=== PATIENT | male | born 1975 | race Caucasian/White ===

== ENCOUNTER 2021-07-27 06:45 | Emergency (ER) | payer OTHER, SELFPAY ==
--- NOTE | ~2021-07-27 | CT_ITS ---
EXAMINATION: CT abdomen pelvis w con DATE: 07/27/2021 09:05 INDICATION: Left-sided abdominal pain. History of diverticulitis. Intermittent nausea. TECHNIQUE: Computed tomography (CT) of the abdomen and pelvis was performed with 100 cc Omnipaque 350 intravenous contrast. The dose-length product was 1481.20 mGy-cm. Automated exposure control and ite rative reconstruction technique were employed. COMPARISON: CT dated 04/28/2013 .. FINDINGS: Bibasilar dependent atelectasis. Heart size normal. No significant pleural or pericardial e ffusion. The liver, spleen, pancreas, adrenal glands and kidneys are unremarkable. Ureters are normal in course and caliber. There is mild acute proximal sigmoid diverticulitis. No evidence for perforat ion. No free air or free fluid. No abscess. Gallbladder is present. There is a moderate sized hiatal hernia. No lymphadenopathy. No significant vascular abnormality. IMPRESSION: 1. Acute uncomplicated proximal sigmoid diverticulitis. Reviewed, dictated and finalized at location A.
[2021-07-27 06:49] VITALS: BP 151/87; PULSE 60; RESP 16; TEMP 36.6; O2SAT 100
[2021-07-27 07:29] LABS: Basophils Percent Auto 0.4 % (0.2-1.2); Eosinophils Absolute Auto 0.1 K/mm3 (0-0.3); Eosinophils Percent Auto 0.8 % (0-4.4); Hematocrit 38.6 % (42.0-52.0); Hemoglobin 12.2 g/dL (14.0-18.0); Immature Granulocyte Absolute 0.04 K/mm3 (0.00-0.031); Immature Granulocyte Percent A 0.5 % (0-0.5); Lymphocytes Absolute Auto 1.37 K/mm3 (0.9-3.2); Lymphocytes Percent Auto 18.3 % (18.3-44.2); Mean Corpuscular HGB Conc 31.6 g/dl (32-36); Mean Corpuscular Hemoglobin 19.7 pg (26-34); Mean Corpuscular Volume 62.3 fl (80-100); Mean Platelet Volume 10.3 fl (7.4-10.4); Monocytes Absolute Auto 0.6 K/mm3 (0.1-0.6); Monocytes Percent Auto 7.9 % (2.6-8.5); Neutrophils Absolute Auto 5.4 K/mm3 (1.3-6.7); Neutrophils Percent Auto 72.1 % (45.5-73.1); Platelet Count Result 280 k/mm3 (150-375); Red Cell Distribution Width 16.4 % (11.5-14.5); White Blood Count 7.5 K/mm3 (4.5-10.0)
[2021-07-27 07:31] LABS: Add Urine Microscopic? NO; Appearance Urine Clear (Clear); Bilirubin Urine Negative (Negative); Blood Urine Negative (Negative); Color Urine Straw (Yellow); Glucose Urine UA Negative (Negative); Ketones Urine Negative (Negative); Leukocyte Esterase Ur Negative LEU/UL (Negative); Nitrate Urine Negative (Negative); Protein Urine Negative (Negative); Specific Grav Ur 1.008 (1.001-1.035); Urobilinogen Urine Negative mg/dL (<2.0)
[2021-07-27 07:40] LABS: Alanine Aminotransferase 33 U/L (4-50); Albumin Level 4.7 g/dL (3.5-5.1); Alkaline Phosphatase 59 U/L (38-126); Anion Gap 10 mmol/L (8-16); Aspartate Amino Transferase 30 U/L (17-59); Bilirubin,Total 0.9 mg/dL (0.2-1.3); Blood Urea Nitrogen 15 mg/dL (9-20); Calcium 9.2 mg/dL (8.4-10.2); Carbon Dioxide 27 mmol/L (22-30); Chloride 104 mmol/L (98-107); Estimated CRCL calculation 121 ml/min; Estimated Glomerular Filt Rate > 60; Glucose 109 mg/dL (65-110); Lipase 35 U/L (23-300); Potassium 4.3 mmol/L (3.4-5.0); Sodium 141 mmol/L (137-145)
--- NOTE | 2021-07-27 08:52 | ED.GENADULT ---
HPI - General Adult General Chief complaint: Abdominal Pain Stated complaint: lower left flank pain Time Seen by Provider: 07/27/21 07:09 Source: patient History of Present Illness HPI narrative: Patient is a 46 y/o male complaining of left lower abdominal pain starting 2 weeks ago. He describes his pain as a pressure and rates it as 4/10. His pain radiates to back sometimes. He has no vomiting, diarrhea or dysuria. Related Data Home Medications Medication Instructions Recorded Confirmed acidophilus 100 million cap PO 03/04/20 04/17/21 cell-pectin, citrus 10 mg capsule Allergies Allergy/AdvReac Type Severity Reaction Status Date / Time No Known Allergies Allergy Verified 07/27/21 06:55 Review of Systems Constitutional: Constitutional: Denies chills, Denies fever(s), Denies headache(s) and Denies weakness Eyes: Eyes: Denies blurry vision ENT: Denies headache(s) and Denies neck pain Cardiovascular: Cardiovascular: Denies chest pain and Denies dyspnea Respiratory: Respiratory: Denies cough and Denies dyspnea Gastrointestinal: Gastrointestinal: Reports abdominal pain, Denies diarrhea, Denies nausea and Denies vomiting Genitourinary: Genitourinary: Denies hematuria and Denies dysuria Musculoskeletal: Musculoskeletal: Reports back pain and Denies neck pain Neurologic: Denies headache(s) and Denies weakness [facility] Past Medical History Medical History Beta thalassemia minor Broken leg left leg - around 2005 Diverticulitis 04/2003 Essential (primary) hypertension GERD without esophagitis Surgical History Surgical History History of open reduction and internal fixation (ORIF) procedure (~2005) 2005 - Left tibia and fibula [place] teeth extracted Family History Family History Mother Lung cancer Hypertension Social History Social History Smoking status: Never smoker Second hand tobacco smoke exposure: No Alcohol intake: current Alcohol use details: consumes more than 5 beers occasionally Substance use: never Substance use type: does not use Gender identity (if verbalized by the patient): Male Exam Const: General: no acute distress and well developed Orientation/consciousness: oriented to person, oriented to place, oriented to time and patient oriented x3 HENMT: Head: normocephalic Ears: external ears normal General nose exam: Normal external nose present Eyes: General: appearance normal, both eyes and all related structures Conjunctivae: conjunctivae normal Neck: Neck: normal visual inspection and full ROM Chest: Chest palpation & inspection: normal inspection of the chest and no tenderness Resp: Effort & Inspection: normal respiratory effort Auscultation: clear to auscultation bilaterally Cardio: Rate: regular rate Rhythm: regular rhythm GI: GI Palp: Yes abdominal tenderness (left lower quadrant) and Yes Soft to palpation Skin: General skin exam: normal color and turgor normal Neuro: General: oriented to person, oriented to place, oriented to time and patient oriented x3 Cognition (Neuro): normal cognition Extrem: General: normal to inspection, full ROM and no pedal edema Psych: Appearance: grossly normal Mental Status: mental status grossly normal Affect: normal affect Course Vital Signs Vital signs: Vital Signs Temperature 36.6 C 07/27/21 06:49 Pulse Rate 60 07/27/21 06:49 Respiratory Rate 16 07/27/21 06:49 Blood Pressure 151/87 H 07/27/21 06:49 Pulse Oximetry 100 07/27/21 06:49 Temperature 36.6 C 07/27/21 06:49 Pulse Rate 60 07/27/21 06:49 Respiratory Rate 16 07/27/21 06:49 Blood Pressure 151/87 H 07/27/21 06:49 Pulse Oximetry 100 07/27/21 06:49 Medical Decision Making Vital Sign
[2021-07-27] MEDS: KETOROLAC 30 MG/ML VIAL (*BKC) IV PUSH (09:10)
== END 2021-07-27 09:51 | disposition home or self-care (01) ==
PROVIDERS: Emergency Medicine; Emergency Provider Emergency Medicine; PCP Family Medicine
DX: K57.92 Diverticulitis of intestine, part unspecified, without perforation or abscess without bleeding (principal); K21.9 Gastro-esophageal reflux disease without esophagitis
CPT/HCPCS: 36415; 74177; 80053; 81003; 83690; 85025; 96374; 99284; J1885; Q9967

== ENCOUNTER 2022-05-13 18:25 | Emergency (ER) | payer OTHER, SELFPAY ==
[2022-05-13 18:33] VITALS: BP 144/79; PULSE 126; RESP 16; TEMP 38.5; O2SAT 98
--- NOTE | 2022-05-13 18:50 | ED.EAR ---
HPI - Ear Problem General Chief complaint: Ear Stated complaint: ear infection Time Seen by Provider: 05/13/22 18:41 Source: patient Mode of arrival: ambulatory Limitations: no limitations History of Present Illness HPI Narrative: Patient presents today complaining of a 2-day history of body aches, bilateral ear pain and pressure, head pressure. Denies any additional symptoms to include sore throat, cough, nausea, vomiting, diarrhea, fever. He has been taking Advil Cold and Sinus with relief. He took a home COVID-19 test less than 24 hours after symptoms began. It was negative. Related Data Home Medications Medication Instructions Recorded Confirmed acidophilus 100 million cap PO 03/04/20 04/17/21 cell-pectin, citrus 10 mg capsule (Acidophilus Probiotic) Allergies Allergy/AdvReac Type Severity Reaction Status Date / Time No Known Allergies Allergy Verified 10/30/21 16:06 Review of Systems Review of Systems: CONSTITUTIONAL: Denies fever, chills, or sweats.+ Body aches EYES: Denies visual changes, redness, or discharge. ENT: Denies rhinorrhea, congestion, sore throat. + Bilateral ear pressure, head pressure CARDIOVASCULAR: Denies chest pain, palpitations, or edema. RESPIRATORY: Denies cough or dyspnea. GASTROINTESTINAL: Denies abdominal pain, nausea, vomiting, or diarrhea. GENITOURINARY: Denies dysuria or hematuria. SKIN: Denies rash, itching, or wounds. MUSCULOSKELETAL: Denies back pain, joint pain, or myalgia. NEUROLOGIC: Denies headache, numbness, tingling, or weakness. PSYCH: Denies depression or anxiety. [facility] Past Medical History Medical History Beta thalassemia minor Broken leg left leg - around 2006 Diverticulitis 04/2003, 07/2020 Essential (primary) hypertension GERD without esophagitis Surgical History Surgical History History of open reduction and internal fixation (ORIF) procedure (~2005) 2005 - Left tibia and fibula [place] teeth extracted Family History Family History Mother Lung cancer Hypertension Social History Social History Smoking status: Never smoker Second hand tobacco smoke exposure: No Alcohol intake: current Alcohol use details: consumes more than 5 beers occasionally Substance use: never Substance use type: does not use Gender identity (if verbalized by the patient): Male Comments At time of signature, I have reviewed and agree with nursing past medical, surgical, social and family history unless otherwise noted. Please see nursing chart for further information. There is no relevant family history pertinent to the presenting complaint Exam Narrative: GENERAL: Well-appearing, well-nourished, and in no acute distress. HEAD: Normocephalic, atraumatic. EYES: EOMI. No redness or drainage. Conjunctivae normal. ENT: Mucous membranes pink and moist. Nares clear. No rhinorrhea. TMs normal bilaterally. Throat normal with mild amount of white postnasal drainage. Uvula midline. NECK: Normal AROM. Supple. No lymphadenopathy. CHEST: No respiratory distress. Clear to auscultation. HEART: Regular rate and rhythm. No murmur appreciated. Normal peripheral pulses. EXTREMITIES: Normal range of motion. No edema. SKIN: Warm, dry, no rash. Capillary refill normal. Normal skin turgor. NEURO: No focal deficits. Alert and oriented x3. Gait steady. PSYCH: Normal affect. No signs of depression or anxiety. Course Course Level of Care: Express Care Visit Vital Signs Vital signs: Vital Signs Temperature 101.3 F H 05/13/22 18:33 Pulse Rate 126 H 05/13/22 18:33 Respiratory Rate 16 05/13/22 18:33 Blood Pressure 144/79 H 05/13/22 18:33 Pulse Oximetry 98 05/13/22 18:33 Oxygen Delivery Room Air 05/13/22 18
== END 2022-05-13 19:21 | disposition home or self-care (01) ==
PROVIDERS: Emergency Provider Nurse Practitioner; PCP Family Medicine
DX: B34.9 Viral infection, unspecified (principal); Z20.822 Contact with and (suspected) exposure to COVID-19; I10 Essential (primary) hypertension; K21.9 Gastro-esophageal reflux disease without esophagitis; D56.3 Thalassemia minor
CPT/HCPCS: 87426; 99213; C9803; G0463

== ENCOUNTER 2022-12-03 16:41 | Outpatient (CLI) | payer OTHER, SELFPAY ==
--- NOTE | 2022-12-26 19:47 | WPDHOMESLEEP ---
Sleep Study - Home Unattended Date of Study: 12/03/22 Ordering Provider: Juan Jose Hall MD Interpreting Provider: Monica Solorio, DO Home Sleep Study Type: Watch PAT Height: 1.88 m Weight: 131.542 kg Body Mass Index: 37.2 Neck Circumference (inches): 17 [place]: 6 Reason for Sleep Study Snoring, witnessed apneas Sleep History The patient is a 47-year-old male with hypertension, GERD, and beta thalassemia minor that had a sleep study ordered by his primary care physician for evaluation of sleep apnea. The patient denies awakening from sleep short of breath. He occasionally awakens at night with heartburn, belching or cough. He constantly snores loudly enough that others complain. He rarely has trouble sleeping when he has a cold. He denies waking up gasping for air throughout the night. He frequently has breathing problems at night observed by himself or others. He occasionally sweats excessively at night. He rarely has heart palpitations or irregular heartbeats during the night. He rarely falls asleep during the day but never while driving. He denies sleep paralysis and cataplexy. He denies having trouble at school or work due to sleepiness. He occasionally experiences vivid dreamlike scenes upon awakening falling asleep. He denies feeling afraid of going to sleep. He occasionally has nightmares. He occasionally remembers his dreams. He frequently has thoughts racing through his mind. He rarely feels sad or depressed. He frequently has anxiety. He rarely has muscular tension. He occasionally notices parts of his body jerk. He denies kicking during the night. He denies having crawling and aching feelings in his legs and denies having leg pain during the night. He denies grinding his teeth during sleep but rarely awakens with morning jaw pain. He is occasionally bothered by pain during the day but rarely awakened by pain during the night. He occasionally wakes up feeling stiff in the morning. He occasionally wakes up with sore or achy muscles. He occasionally wakes up with pain in the neck, spine or other joints. He goes to bed at 9:00 p.m. on both weekdays and weekends. He is able to fall asleep within minutes. He wakes up 1-2 times throughout the night to urinate. He is able fall back asleep within 5-10 minutes. He wakes up at 5:00 a.m. on both weekdays and weekends. He typically gets 8 hours of sleep per night. He will stay in bed for 10 minutes after waking up in the morning. He currently lives with his and 3 children. He will consume caffeinated beverages within 2 hours of bedtime. He does not engage in physical exercise before bedtime. He denies reading and watching television before falling asleep. He does not take any naps in the afternoon or the evening. He drinks 4 cups of caffeinated beverage per day. He denies tobacco, alcohol and recreational drug use. [facility] Past Medical History Medical History Beta thalassemia minor Broken leg left leg - around 2005 Diverticulitis 04/2003, 07/2020 Essential (primary) hypertension GERD without esophagitis Surgical History Surgical History History of open reduction and internal fixation (ORIF) procedure (~2005) 2005 - Left tibia and fibula [place] teeth extracted Family History Family History Mother Lung cancer Hypertension Social History Social History Smoking status: Never smoker Second hand tobacco smoke exposure: No Alcohol intake: current Alcohol use details: consumes more than 5 beers occasionally Substance use: never Substance use type: does not use Lack of Transportation: No Lack of Food: Never True Current Housing: I Have Housing Concerned About Future Housing: No Difficulty P
[2022-12-26 19:59] VITALS: BMI 37.2
== END 2022-12-07 10:25 | disposition home or self-care (01) ==
LOC: ANHCSM 16:41
PROVIDERS: PCP Family Medicine; Visit Provider Family Medicine
DX: G47.33 Obstructive sleep apnea (adult) (pediatric) (principal); G47.10 Hypersomnia, unspecified
CPT/HCPCS: 95800

== ENCOUNTER 2023-10-20 18:37 | Emergency (ER) | payer OTHER, SELFPAY ==
--- NOTE | 2023-10-20 18:48 | ED.SKABFB ---
HPI - Skin/Abscess/Foreign Bdy General Chief complaint: Skin/Abscess/Foreign Body Stated complaint: Rash Time Seen by Provider: 10/20/23 19:05 Source: patient and RN notes reviewed Mode of arrival: ambulatory Limitations: no limitations History of Present Illness HPI narrative: 48-year-old male presents concern for painful itchy rash on his right chest and back. Reports that started a few days ago. Reports pain is a 4/10. He denies drainage from the area. Denies general malaise or fever. MD complaint: rash Related Data Home Medications Medication Instructions Recorded Confirmed acidophilus 100 million 1 cap PO DAILY 11/05/22 11/05/22 cell-pectin, citrus 10 mg capsule (Acidophilus Probiotic) Allergies Allergy/AdvReac Type Severity Reaction Status Date / Time No Known Allergies Allergy Verified 11/05/22 15:59 Review of Systems Review of Systems: CONSTITUTIONAL: Denies malaise, chills, sweats, or fever. EYES: Denies redness, or discharge. ENT: Denies rhinorrhea, congestion, swollen lips, swollen tongue CARDIOVASCULAR: Denies chest pain, palpitations, or edema. RESPIRATORY: Denies cough or dyspnea. GASTROINTESTINAL: Denies abdominal pain, nausea, vomiting SKIN: Reports painful itchy rash on the right chest and back MUSCULOSKELETAL: Denies joint pain or myalgia. NEUROLOGIC: Denies headache. All systems reviewed & are unremarkable except as noted in HPI and below PMFSH Past Medical History Medical History Beta thalassemia minor Broken leg left leg - around 2005 Diverticulitis 04/2003, 07/2020 Essential (primary) hypertension GERD without esophagitis Surgical History Surgical History History of open reduction and internal fixation (ORIF) procedure (~2005) 2005 - Left tibia and fibula [place] teeth extracted Family History Family History Mother Lung cancer Hypertension Social History Social History Smoking status: Never smoker Second hand tobacco smoke exposure: No Alcohol intake: current Alcohol use details: consumes more than 5 beers occasionally Substance use: never Substance use type: does not use Lack of Transportation: No Lack of Food: Never True Current Housing: I Have Housing Concerned About Future Housing: No Difficulty Paying Gas/Electric Bills: No Difficulty Paying for Meds: No Currently Unemployed: No Education: Decline to Answer Difficulty w/ Childcare or Family Care: No Gender identity (if verbalized by the patient): Male Comments At time of signature, agree with nursing past medical, surgical, social and family history. There is no relevant family history pertinent to the presenting complaint Exam Narrative: GENERAL: Well-appearing, well-nourished, and in no acute distress. HEAD: Normocephalic, atraumatic. EYES: PERRLA, conjunctivae clear, and EOMI. ENT: Mucous membranes moist. Oropharynx without edema, erythema or lesions. NECK: Supple. No lymphadenopathy CHEST: Clear to auscultation. No respiratory distress. HEART: Regular rate and rhythm. SKIN: Warm, dry. Zosteriform rash noted to the right torso NEURO: Alert and oriented x3. PSYCH: Normal mood and affect Course Course Emergency Course: Patient is aware of diagnosis, understands and agrees to treatment plan. Anticipatory guidance given. Patient agrees to follow-up as directed and is aware of reasons to seek care at the emergency department. Portions of this record may have been created with voice recognition software Level of Care: Express Care Visit Vital Signs Vital signs: Reviewed. MDM - Skin/Abscess/Foreign Bdy MDM Narrative Medical decision making narrative: Does not appear at this time to be erythema multiforme, bullous, SJS, TE
[2023-10-20 18:55] VITALS: BP 132/83; PULSE 95; RESP 18; TEMP 36.6; O2SAT 100
== END 2023-10-20 19:15 | disposition home or self-care (01) ==
PROVIDERS: Emergency Provider Nurse Practitioner; PCP Family Medicine
DX: B02.9 Zoster without complications (principal); I10 Essential (primary) hypertension; K21.9 Gastro-esophageal reflux disease without esophagitis; D56.3 Thalassemia minor
CPT/HCPCS: 99213; G0463

== ENCOUNTER 2024-02-20 12:21 | Emergency (ER) | payer OTHER, SELFPAY ==
--- NOTE | ~2024-02-20 | CT_ITS ---
EXAMINATION: CT brain wo con DATE: 02/20/2024 14:09 INDICATION: Head injury. TECHNIQUE: Computed tomography (CT) of the head was performed without intravenous contrast. The mA wa s adjusted according to patient size. Iterative reconstruction technique was employed. The dose-lengt h product was 756.67 mGy-cm. COMPARISON: None FINDINGS: There is no intracranial hemorrhage, acute infarction, or abnormal intracranial mass lesion . The ventricles are normal in size. There is mild mucosal thickening in the ethmoid sinuses. The mas toid air cells are normal. The orbits are normal. IMPRESSION: 1. Normal brain. Reviewed, dictated and finalized at location E. IMPRESSION: 1. Normal brain.
--- NOTE | ~2024-02-20 | CT_ITS ---
EXAMINATION:CT diagnostic chest w con DATE: 02/20/2024 14:10 INDICATION: Chest injury. Left shoulder pain. TECHNIQUE: Computed tomography (CT) of the chest was performed with 75 mL Omnipaque 350 intravenous c ontrast. Automated exposure control and iterative reconstruction technique were employed. The dose-le ngth product (DLP) was 847.82 mGy-cm. COMPARISON: None. FINDINGS: The lungs demonstrate mild atelectasis. No pleural effusion. The heart is normal. No perica rdial effusion. There is a moderate-sized sliding hernia. There is mild chronic anterior wedging of m ultiple vertebral bodies. There is mild thoracic spondylosis. There is a fracture involving left C7 s uperior facet and transverse process. IMPRESSION: 1. Fracture involving left C7 superior facet and transverse process. 2. Moderate-sized sliding hiatal hernia. Reviewed, dictated and finalized at location E.
--- NOTE | ~2024-02-20 | XR_ITS ---
EXAMINATION: XR shoulder LT min 2V DATE: 02/20/2024 14:14 INDICATION: Left shoulder injury. TECHNIQUE: 5 views of left shoulder were obtained. COMPARISON: None. FINDINGS: Alignment is normal. No fracture. There is mild osteoarthritis of glenohumeral joint and ac romioclavicular joint. IMPRESSION: 1. Mild polyarticular osteoarthritis. Reviewed, dictated and finalized at location E.
--- NOTE | ~2024-02-20 | CT_ITS ---
EXAMINATION: CT cervical spine wo con DATE: 02/20/2024 14:09 INDICATION: Neck injury. TECHNIQUE: Computed tomography (CT) of the cervical spine was performed without intravenous contrast. Automated exposure control and iterative reconstruction technique were employed. The dose-length pro duct was 564.18 mGy-cm. COMPARISON: None FINDINGS: C1 ring is ununited posteriorly, a normal variant. There is a fracture left C6 superior fac et and transverse process. There is 6 degrees dextrocurvature of the cervicothoracic spine. Vertebral body heights are normal. There is mildly decreased disc height at C3-C4, C4-C5, and C5-C6. The follo wing disc levels are specifically discussed: C2-C3: There is mild left uncovertebral joint osteoarthritis. There is moderate bilateral facet joint osteoarthritis. There is no neural foraminal stenosis. There is no central canal stenosis. C3-C4: There is mild bilateral uncovertebral joint osteoarthritis. There is mild bilateral facet join t osteoarthritis. There is no neural foraminal stenosis. There is mild central canal stenosis. C4-C5: There is mild bilateral uncovertebral joint osteoarthritis. There is moderate bilateral facet joint osteoarthritis. There is mild left neural foraminal stenosis. There is mild central canal steno sis. C5-C6: There is mild right and severe left uncovertebral joint osteoarthritis. There is mild bilatera l facet joint osteoarthritis. There is moderate left neural foraminal stenosis. There is mild central canal stenosis. C6-C7: There is mild left uncovertebral joint osteoarthritis. There is moderate right and mild left f acet joint osteoarthritis. There is moderate left neural foraminal stenosis. There is no central andres l stenosis. C7-T1: There is no uncovertebral joint osteoarthritis. There is mild right and moderate left facet kajal int osteoarthritis. There is mild left neural foraminal stenosis. There is no central canal stenosis. IMPRESSION: 1. Acute fracture of left C6 superior facet and transverse process. I called this result to Dr. Vandana rob. 2. Moderate cervical spondylosis. Reviewed, dictated and finalized at location E. IMPRESSION: 1. Acute fracture of left C6 superior facet and transverse process. I called th is result to Dr. Mendieta. 2. Moderate cervical spondylosis.
[2024-02-20 12:32] VITALS: BP 152/89; PULSE 71; RESP 20; TEMP 36.7; O2SAT 98
[2024-02-20] MEDS: KETOROLAC 30 MG/ML VIAL (*BKC) IV PUSH (12:44)
[2024-02-20] MEDS: MORPHINE SULFATE (*CRX) 4 MG/ML INJ IV PUSH (12:45)
[2024-02-20 12:51] LABS: Basophils Percent Auto 0.3 % (0.2-1.2); Eosinophils Percent Auto 0.4 % (0-4.4); Hemoglobin 11.6 g/dL (14.0-18.0); Immature Granulocyte Absolute 0.06 K/mm3 (0.00-0.031); Immature Granulocyte Percent A 0.6 % (0-0.5); Lymphocytes Absolute Auto 1.14 K/mm3 (0.9-3.2); Lymphocytes Percent Auto 11.9 % (18.3-44.2); Mean Corpuscular HGB Conc 31.4 g/dl (32-36); Mean Corpuscular Hemoglobin 19.5 pg (26-34); Mean Corpuscular Volume 62.3 fl (80-100); Mean Platelet Volume 10.2 fl (7.4-10.4); Monocytes Absolute Auto 0.7 K/mm3 (0.1-0.6); Monocytes Percent Auto 7.7 % (2.6-8.5); Neutrophils Absolute Auto 7.6 K/mm3 (1.3-6.7); Neutrophils Percent Auto 79.1 % (45.5-73.1); Nucleated Red Blood Cells Perc 0.2 % (0.0-0.2); Platelet Count Result 240 k/mm3 (150-375); Red Blood Count 5.94 M/mm3 (4.6-6.20); White Blood Count 9.6 K/mm3 (4.5-10.0)
--- NOTE | 2024-02-20 13:01 | ED.FALL ---
HPI - Fall General Chief Complaint: Fall Stated Complaint: fall 10ft ladder Time Seen by Provider: 02/20/24 12:23 History of Present Illness HPI Narrative: patient is a 48-year-old male who presents ER after a fall from 10 ft from a ladder. Reports he has pain in his left shoulder that moves towards his neck. He was placed in a C-collar in triage. He ambulated in. He reports tingling type sensation in the left thumb/index finger/middle finger. Patient reports pain around left shoulder the is and posterior aspect of the back. No limitation range of motion. Patient did fall onto a log and has an abrasion across his chest inferior to the nipple line. Related Data Home Medications Medication Instructions Recorded Confirmed acidophilus 100 million 1 cap PO DAILY 11/05/22 11/11/23 cell-pectin, citrus 10 mg capsule (Acidophilus Probiotic) Allergies Allergy/AdvReac Type Severity Reaction Status Date / Time No Known Allergies Allergy Verified 02/20/24 12:32 Review of Systems Constitutional: Constitutional: Reports no additional constitutional complaints ENT: Reports system reviewed and no additional complaints, except as documented Cardiovascular: Cardiovascular: Reports no additional cardiovascular complaints Respiratory: Respiratory: Reports no additional respiratory complaints Musculoskeletal: Musculoskeletal: Reports back pain, Reports arthralgias, Denies joint swelling and Denies muscle cramps Integumentary/Breasts: Skin/Breast: Denies erythema and Denies rash Comments: chest abrasion Neurologic: Denies syncope, Denies headache(s) and Denies focal weakness Comments: paresthesia left hand PMFSH Past Medical History Medical History Beta thalassemia minor Broken leg left leg - around 2005 Diverticulitis 04/2003, 07/2020 Essential (primary) hypertension GERD without esophagitis KRISTEN (obstructive sleep apnea) (12/04/22) Surgical History Surgical History History of open reduction and internal fixation (ORIF) procedure (~2005) 2005 - Left tibia and fibula [place] teeth extracted Family History Family History Mother Lung cancer Hypertension Social History Social History Smoking status: Never smoker Second hand tobacco smoke exposure: No Alcohol intake: current Alcohol use details: consumes more than 5 beers occasionally Substance use: never Substance use type: does not use Do You Feel Safe in your Home?: Yes Lack of Transportation: No Lack of Food: Never True Current Housing: I Have Housing Concerned About Future Housing: No Difficulty Paying Gas/Electric Bills: No Difficulty Paying for Meds: No Currently Unemployed: No Education: Decline to Answer Difficulty w/ Childcare or Family Care: No Living arrangements: with family Occupation/Education: occupation Gender identity (if verbalized by the patient): Male Agree to blood products: Yes Exam Narrative: GENERAL: Well-appearing, well-nourished, and in no acute distress. HEAD: Normocephalic, atraumatic. EYES: PERRL and EOMI. ENT: Mucous membranes moist. NECK: Supple. No midline cervical tenderness. C-collar in place. CHEST: Clear to auscultation. No respiratory distress. No chest wall tenderness. HEART: Regular rate and rhythm. Normal peripheral pulses. ABDOMEN: Soft, nontender, nondistended. EXTREMITIES: Normal range of motion. No edema. Back: No midline or paraspinal tenderness the T/L-spine. No bruising/abrasions/step-offs. SKIN: Warm, dry, no rash. Linear abrasions inferior to the nipple line of the anterior chest wall. NEURO: Alert and oriented x3. No sharp or soft touch deficits to the digits of the left hand. PSYCH: Normal mood and affect. [place]
[2024-02-20 13:07] LABS: Alanine Aminotransferase 29 U/L (6-50); Albumin Level 4.5 g/dL (3.5-5.1); Alkaline Phosphatase 60 U/L (38-126); Anion Gap 9 mmol/L (4-12); Aspartate Amino Transferase 29 U/L (17-59); Bilirubin,Total 0.8 mg/dL (0.2-1.3); Blood Urea Nitrogen 17 mg/dL (9-20); Calcium 9.4 mg/dL (8.4-10.2); Carbon Dioxide 25 mmol/L (22-30); Chloride 107 mmol/L (98-107); Estimated CRCL calculation 119 ml/min; Estimated Glomerular Filt Rate > 60; Glucose 90 mg/dL (65-110); Potassium 3.6 mmol/L (3.4-5.0); Sodium 141 mmol/L (137-145)
[2024-02-20 13:08] VITALS: BP 152/89; PULSE 81; RESP 14; O2SAT 95
[2024-02-20 13:25] LABS: Anisocytosis 1+; Large Platelets Present; Platelet Estimate Adequate (Adequate); Poikilocytosis 1+
[2024-02-20 13:26] LABS: Ovalocytes 1+; Schistocytes None Seen; Target Cells 1+
[2024-02-20 13:50] VITALS: BP 142/79; PULSE 70; RESP 19; O2SAT 97
[2024-02-20 14:05] LABS: Appearance Urine Clear (Clear); Bilirubin Urine Negative (Negative); Blood Urine Negative (Negative); Color Urine Yellow (Yellow); Glucose Urine UA Negative (Negative); Ketones Urine Negative (Negative); Leukocyte Esterase Ur Negative LEU/UL (Negative); Nitrate Urine Negative (Negative); Protein Urine Negative (Negative); Specific Grav Ur 1.018 (1.001-1.035); Urobilinogen Urine 0.2 mg/dL (<2.0); pH Urine 6.5 (5.0-9.0)
[2024-02-20 14:11] LABS: Add Urine Microscopic? NO
[2024-02-20 14:40] VITALS: TEMP 36.7
[2024-02-20 14:55] VITALS: BP 144/84; PULSE 78; RESP 20; O2SAT 98
== END 2024-02-20 15:36 | disposition short-term general hospital (02) ==
PROVIDERS: Emergency Provider Emergency Medicine; PCP Family Medicine
DX: S12.600A Unspecified displaced fracture of seventh cervical vertebra, initial encounter for closed fracture (principal); M54.12 Radiculopathy, cervical region; I10 Essential (primary) hypertension; K21.9 Gastro-esophageal reflux disease without esophagitis; G47.33 Obstructive sleep apnea (adult) (pediatric); M19.012 Primary osteoarthritis, left shoulder; M47.812 Spondylosis without myelopathy or radiculopathy, cervical region; K44.9 Diaphragmatic hernia without obstruction or gangrene; W11.XXXA Fall on and from ladder, initial encounter
CPT/HCPCS: 36415; 70450; 71260; 72125; 73030; 80053; 81003; 85025; 96374; 96375; 99285; J1885; J2270; Q9967

== ENCOUNTER 2025-08-12 13:56 | Emergency (ER) | payer OTHER, SELFPAY ==
[2025-08-12 14:04] VITALS: BP 120/74; PULSE 59; RESP 16; TEMP 36.9; O2SAT 100
--- NOTE | 2025-08-12 14:20 | ED.ABDPAIN ---
HPI - Abdominal Pain General Chief Complaint: Abdominal Pain Stated Complaint: Lower abdominal pressure; Diverticulitis in the pa Time Seen by Provider: 08/12/25 14:00 Source: patient Mode of arrival: ambulatory Limitations: no limitations History of Present Illness HPI narrative: Patient is a 50-year-old male who presents with low abdominal pressure and discomfort along with multiple bowel movements. Symptoms started after eating nuts 2 days ago. Patient has history of diverticulitis. Denies any fever, chills, nausea, vomiting. Related Data Home Medications ?Medication ?Instructions ?Recorded ?Confirmed ?Last Taken ?Type acidophilus 100 million 1 cap PO DAILY 11/05/22 12/18/24 Unknown History cell-pectin, citrus 10 mg capsule (Acidophilus Probiotic) omega 3-tzy-bgt-fish oil 910 cap PO 06/13/24 12/18/24 Unknown History mg-1,400 mg capsule ([place]-3 Fish Oil) multivitamin (Daily Multi-Vitamin 1 tablet PO DAILY 12/18/24 12/18/24 Unknown History tablet) Allergies Allergy/AdvReac Type Severity Reaction Status Date / Time No Known Allergies Allergy Verified 08/12/25 14:03 Review of Systems Review of Systems: All systems reviewed & are unremarkable except as noted in HPI and below Constitutional: Constitutional: Denies body ache(s), Denies chills, Denies fatigue, Denies fever(s), Denies headache(s), Denies malaise and Denies weakness Eyes: Eyes: Denies blurry vision, Denies irritation and Denies loss of vision ENT: Denies otalgia, Denies headache(s), Denies nasal discharge, Denies sinus pain and Denies sore throat Cardiovascular: Cardiovascular: Denies chest pain, Denies irregular heart rhythm and Denies dyspnea Respiratory: Respiratory: Denies dyspnea Gastrointestinal: Gastrointestinal: Reports abdominal pain, Denies melena, Denies hematochezia, Reports GI cramping, Denies diarrhea, Denies nausea and Denies vomiting Musculoskeletal: Musculoskeletal: Denies back pain, Denies myalgias and Denies arthralgias Integumentary/Breasts: Skin/Breast: Denies pruritus and Denies rash Neurologic: Denies headache(s), Denies loss of vision and Denies weakness Psychiatric: Psychiatric: Reports no additional psychiatric complaints Endocrine: Endocrine: Denies fatigue PMFSH Past Medical History Medical History Prediabetes KRISTEN (obstructive sleep apnea) (12/04/22) Beta thalassemia minor GERD without esophagitis Essential (primary) hypertension Broken leg left leg - around 2005 Diverticulitis 04/2003, 07/2020 Surgical History Surgical History Hx of fusion of cervical spine (~01/2024) C6-7 fusion History of open reduction and internal fixation (ORIF) procedure (~2005) 2005 - Left tibia and fibula [place] teeth extracted Family History Family History Mother Lung cancer Hypertension Social History Social History Smoking status: Never smoker Second hand tobacco smoke exposure: No Alcohol intake: current Alcohol use details: consumes more than 5 beers occasionally Substance use: never Substance use type: does not use Do You Feel Safe in your Home?: Yes Lack of Transportation: No Lack of Food: Never True Current Housing: I Have Housing Concerned About Future Housing: No Difficulty Paying Gas/Electric Bills: No Difficulty Paying for Meds: No Currently Unemployed: No Education: Decline to Answer Difficulty w/ Childcare or Family Care: No Living arrangements: with family Occupation/Education: occupation Gender identity (if verbalized by the patient): Male Agree to blood products: Yes Comments At time of signature, agree with nursing past medical, surgical, social and family history. There is no relevant family history pertinent to the presenting complaint. Exam Const: General: cooperative, healthy appearing, comfortable, no acute distress and well nourished Nutritional Appearance: well nourished Orientation/consciousness: patient oriented x3 Limitations: no limitations HENMT: Head: normal to inspection, normocephalic and atraumatic Ears: hearing grossly normal bilaterally and external ears normal Face/Nose/Sinus: Normal external nose present, normal facial exam and face symmetric Face and sinus: normal facial exam and face symmetric Mouth: Yes lip normal Eyes: General: appearance normal, both eyes and all related structures Alignment and Position: alignment normal and position normal Periorbital: periorbital findings normal Eyelids: eyelids normal Pupils: Equal, round and reactive pupils present EOM: EOMs intact bilaterally Neck: Neck: normal visual inspection, full ROM and supple Chest: Chest palpation & inspection: normal inspection of the chest Resp: Effort & Inspection: normal respiratory effort and able to speak in complete sentences Auscultation: clear to auscultation bilaterally Cardio: Rate: regular rate Rhythm: regular rhythm Heart sounds: S1 normal heart sound present and S2 normal heart sound present GI: Inspection: normal to inspection GI Palp: Yes Soft to palpation, No Tenderness to palpation present (GI) and No Guarding due to palpation present (GI) Skin: General skin exam: normal color and no rashes or lesions noted Neuro: General: patient oriented x3 and moves all extremities Cranial nerves: Yes Equal, round and reactive pupils present Speech: normal speech Gait exam (Neuro): Normal gait present Extrem: General: normal to inspection, full ROM and no edema Psych: Appearance: grossly normal and well kempt Mental Status: mental status grossly normal Speech and movement: Normal speech and movement present Affect: normal affect Attitude: cooperative Thought process: Normal thought process present Course Course Emergency Course: Patient is aware of diagnosis, understands and agrees to treatment plan. Anticipatory guidance given. Patient agrees to follow-up as directed and is aware of reasons to seek care at the emergency department. Portions of this record may have been created with voice recognition software Level of Care: Express Care Visit Vital Signs Vital signs: Vital Signs Temperature 36.9 C 08/12/25 14:04 Pulse Rate 59 L 08/12/25 14:04 Respiratory Rate 16 08/12/25 14:04 Blood Pressure 120/74 08/12/25 14:04 Pulse Oximetry 100 08/12/25 14:04 Oxygen Delivery Room Air 08/12/25 14:04 Temperature 36.9 C 08/12/25 14:04 Pulse Rate 59 L 08/12/25 14:04 Respiratory Rate 16 08/12/25 14:04 Blood Pressure 120/74 08/12/25 14:04 Pulse Oximetry 100 08/12/25 14:04 Oxygen Delivery Room Air 08/12/25 14:04 Reviewed MDM - Abdominal Pain MDM Narrative Medical decision making narrative: Will treat with antibiotics based on presentation and history Pt well hydrated appearing, in no respiratory distress, hemodynamically stable. Recommend supportive care. The patient is stable at time of discharge the clinical impression was discussed and the patient was given the opportunity to ask questions, which were addressed as completely as possible given the information available at present. Anticipatory guidance and return to care precautions were discussed and the importance of primary care follow-up was stressed and encouraged. The patient voiced understanding of the plan, indications to return, and the need for follow-up. Exam findings show no acute concerns or changes Patient is appropriate for outpatient treatment and follow-up. Differential Diagnosis Differential diagnosis: Likely abdominal pain, acute appendicitis, diverticulitis and gastroenteritis Medical Records Attestation: I reviewed the patient's medical records. Discharge Plan Discharge Clinical Impression: Diverticulitis Patient Disposition: Home Condition: Stable Instructions: Diverticulitis (ED) Additional Instructions: Take antibiotics as prescribed. Follow-up with PCP as needed Please go to the emergency department immediately should you feel worse in any way or have any of the following symptoms: increasing or different abdominal pain, persistent vomiting, fevers or shaking chills. Please follow-up with your primary care provider for further evaluation of your abdominal pain. Patient Language: Brazilian Prescriptions: New metronidazole 500 mg tablet 500 mg PO TID 7 Days Qty: 21 0RF ciprofloxacin HCl 500 mg tablet 500 mg PO Q12H 7 Days Qty: 14 0RF No Action [place]-3 Fish Oil 910-1,400 mg capsule PO multivitamin [Daily Multi-Vitamin] Tablet 1 tablet PO DAILY acidophilus-pectin, citrus [Acidophilus Probiotic] 100 million cell-10 mg capsule 1 cap PO DAILY omeprazole 20 mg capsule,delayed release(DR/EC) 20 mg PO DAILY Qty: 90 1RF losartan-hydrochlorothiazide 50-12.5 mg tablet 1 tablet PO DAILY Qty: 90 1RF cholecalciferol (vitamin D3) 50 mcg (2,000 unit) tablet 50 mcg PO DAILY Qty: 90 2RF Follow-up/Referrals: Bryce Hall MD [Primary Care Provider, Family Practice] - 3 Days Time of Disposition: 15:08
== END 2025-08-12 15:11 | disposition home or self-care (01) ==
PROVIDERS: Emergency Provider Nurse Practitioner Family; PCP Family Medicine
DX: K57.92 Diverticulitis of intestine, part unspecified, without perforation or abscess without bleeding (principal); I10 Essential (primary) hypertension; R73.03 Prediabetes; D56.3 Thalassemia minor; K21.9 Gastro-esophageal reflux disease without esophagitis
CPT/HCPCS: 99213; G0463